=== PATIENT | male | born 1975 | race Hispanic/Latino ===

== ENCOUNTER 2017-03-27 08:50 | Day surgery (SDC) | payer OTHER ==
[2017-03-25 12:13] VITALS: BMI 51.7
--- NOTE | 2017-03-27 12:59 | CP.SDSHP ---
Same Day Surgery H & P - History Proposed Procedure: US guided FNA of right and left thyroid. Pre-Op Diagnosis: Thyroid nodules - Allergies Allergies: Allergies No Known Allergies Allergy (Unverified 06/26/14 08:15) - Physical Exam Vital Signs: Vital Signs 03/27/17 09:09 Temperature 98 F Pulse Rate 90 Respiratory 18 Rate Blood Pressure 159/90 H O2 Sat by Pulse 97 Oximetry Mental Status: Alert & Oriented x3 - Impression Impression: Pt with bilateral thyroid nodules. Plan US guided FNA of thyroid nodules. Pt. Evaluated Today:Candidate for Anesthesia & Procedure: No - Date & Time Date: 03/27/17 Time: 12:55 Short Stay Discharge - Short Stay Discharge Admitting Diagnosis/Reason for Visit: THYROID NODULE Disposition: HOME/ ROUTINE
--- NOTE | 2017-03-27 13:07 | PCM.SURG1 ---
Surgeon's Initial Post Op Note - Surgeon's Notes Surgeon: Stacia Kraft Vending Mechanic: None Type of Anesthesia: Local Pre-Operative Diagnosis: Thyroid nodules Operative Findings: Complex right and left thyroid nodules Post-Operative Diagnosis: Thyroid nodules Operation Performed: US guided FNA Specimen/Specimens Removed: 25 g FNA x 4 passes per each nodule Estimated Blood Loss: EBL {In ML}: 0 Blood Products Given: N/A Drains Used: No Drains Post-Op Condition: Good Date of Surgery/Procedure: 03/27/17 Time of Surgery/Procedure: 13:00
[2017-03-27 13:19] VITALS: BP 126/73; PULSE 81; RESP 19; TEMP 97.8; O2SAT 95
--- NOTE | 2017-03-28 15:17 | US ---
PROCEDURE: Date of Procedure: 03/27/2017 PROCEDURE: 1. Ultrasound guided FNA of left thyroid nodule, CPT 63067 2. Ultrasound guided FNA of RIGHT thyroid nodule, 3. Ultrasound guidance for FNA, 75356 Medications: 6cc 1% Lidocaine HISTORY: Enlarged thyroid nodules. TECHNIQUE: Following informed consent and procedure time-out, a limited ultrasound patient's neck confirmed the presence of a 2 cm x 1.6 cm complex mixed solid and cystic left thyroid nodule. Also present is a complex, mixed solid and cystic right thyroid nodule measuring 2.5 cm. After the patient's neck was prepped and draped in the usual sterile fashion, the skin was anesthetized with 1% lidocaine. Ultrasound-guided fine needle aspiration was then performed of the dominant left thyroid nodule. A total of 4 passes were made into the nodule with 25 gauge needle under ultrasound guidance. The FNA specimen was sent for routine pathology. Ultrasound guided FNA was then performed of the dominant right thyroid nodule. Again 4 passes were made into the nodule with 25 gauge needle. The FNA specimen was sent for routine pathology. Post biopsy ultrasound showed no hematoma. IMPRESSION: Ultrasound-guided FNA of the dominant right and left thyroid nodules.
== END 2017-03-27 13:30 | disposition home or self-care (01) ==
LOC: C.SPRAD 08:50
PROVIDERS: ATTEND Radiology Vascular & Interventional Radiology
DX: E04.2 Nontoxic multinodular goiter (principal)